=== PATIENT | male | born 1955 | race African-American/Black ===

== ENCOUNTER 2024-03-28 10:08 | Emergency (ER) | payer MEDICARE, SELFPAY ==
--- NOTE | ~2024-03-28 | XR_ITS ---
EXAMINATION: XR chest 1V portable DATE: 03/28/2024 10:31 INDICATION: Dizziness. TECHNIQUE: A single frontal view of the chest was obtained. COMPARISON: None. FINDINGS: There is mild atelectasis in left lower lung zone. No pleural effusion or pneumothorax. The heart size is normal. IMPRESSION: 1. Mild atelectasis in left lower lung zone. Reviewed, dictated and finalized at location A.
[2024-03-28 10:11] VITALS: BP 161/89; PULSE 68; RESP 18; TEMP 36.6; O2SAT 97
--- NOTE | 2024-03-28 11:01 | ED.URI ---
HPI - URI/Sore Throat General Chief Complaint: Upper Respiratory Infection Stated Complaint: covid+, not feeling well X1 week Time Seen by Provider: 03/28/24 10:16 History of Present Illness HPI Narrative: Patient was diagnosed with COVID a week ago, started on doxycycline, Paxlovid, steroids, has been having nausea and stomach upset he thinks mostly from the doxycycline. Related Data Allergies Allergy/AdvReac Type Severity Reaction Status Date / Time No Known Allergies Allergy Verified 03/28/24 10:09 Review of Systems Review of Systems: All systems reviewed & are unremarkable except as noted in HPI and below Exam Narrative: EXAMINATION OF ORGAN SYSTEMS/BODY AREAS: Constitutional: Vital signs per nursing GENERAL:[No acute distress, non-toxic appearing.] HEAD: Normal with no signs of head trauma. EYES: EOMI, conjunctiva normal ENT: Hearing grossly intact LUNGS: Nonlabored breathing, clear to auscultation bilaterally HEART: [Regular rate and rhythm] ABD: [Soft], [nontender to palpation] EXT: Normal range of motion SKIN: [No rashes or lesions.] NEURO: [Alert and oriented x 3. No gross focal sensory or strength deficits.] PSYCH: Normal affect Course Vital Signs Vital signs: Vital Signs Temperature 97.9 F 03/28/24 10:11 Pulse Rate 68 03/28/24 10:11 Respiratory Rate 18 03/28/24 10:11 Blood Pressure 161/89 H 03/28/24 10:11 Pulse Oximetry 97 03/28/24 10:11 Oxygen Delivery Room Air 03/28/24 10:11 Temperature 97.9 F 03/28/24 10:11 Pulse Rate 68 03/28/24 10:11 Respiratory Rate 18 03/28/24 10:11 Blood Pressure 161/89 H 03/28/24 10:11 Pulse Oximetry 97 03/28/24 10:11 Oxygen Delivery Room Air 03/28/24 10:11 MDM - URI/Sore Throat MDM Narrative Medical decision making narrative: 69-year-old male presents here with stomach upset after recent COVID diagnosis he thinks worsened by doxycycline he was prescribed. Overall well-appearing here, abdomen soft nontender, I will give him medications here and check basic labs and chest x-ray and re-evaluate. Labs do show elevated LFTs I do not a baseline, I suspect this may be from potential recent viral infection, I did get patient follow-up instructions to GI for any further issues to track his LFTs, and come back here if his symptoms persist or worsen. Patient and agreeable to plan. Scripts for symptomatic management provided. Lab Data 03/28/24 10:59 03/28/24 10:59 Labs: Lab Results 03/28/24 Range/Units 10:59 WBC 6.3 (4.5-10.0) K/mm3 RBC 5.36 (4.6-6.20) M/mm3 Hgb 17.3 (14.0-18.0) g/dL Hct 50.4 (42.0-52.0) % MCV 94.0 (80-100) fl MCH 32.3 (26-34) pg MCHC 34.3 (32-36) g/dl RDW 12.9 (11.5-14.5) % Plt Count 245 (150-375) k/mm3 MPV 9.6 (7.4-10.4) fl Immature Gran % (Auto) 1.4 H (0-0.5) % Neut % (Auto) 51.2 (45.5-73.1) % Lymph % (Auto) 31.0 (18.3-44.2) % Wirt % (Auto) 13.8 H (2.6-8.5) % Eos % (Auto) 2.1 (0-4.4) % Baso % (Auto) 0.5 (0.2-1.2) % Lymph # (Auto) 1.95 (0.9-3.2) K/mm3 Wirt # (Auto) 0.9 H (0.1-0.6) K/mm3 Eos # (Auto) 0.1 (0-0.3) K/mm3 Baso # (Auto) 0.0 (0.0-0.1) K/mm3 Abs Immat Gran (auto) 0.09 H (0.00-0.031) K/mm3 Absolute Neuts (auto) 3.2 (1.3-6.7) K/mm3 Absolute Nucleated RBC 0.000 (0.0-0.012) K/mm3 Nucleated RBC % 0.0 (0.0-0.2) % Sodium 135 L (137-145) mmol/L Potassium 3.9 (3.4-5.0) mmol/L Chloride 97 L (98-107) mmol/L Carbon Dioxide 34 H (22-30) mmol/L Anion Gap 4 (4-12) mmol/L BUN 12 (9-20) mg/dL Creatinine 1.00 (0.7-1.3) mg/dL Estim Creat Clear Calc 68 ml/min Estimated GFR > 60 (59 - ) Glucose 108 (65-110) mg/dL Calcium 9.0 (8.4-10.2) mg/dL Total Bilirubin 0.9 (0.2-1.3) mg/dL AST 68 H (17-59) U/L ALT 149 H (6-50) U/L Alkaline Phosphatase 122 (38-126) U/L Total Protein 8.0 (6.3-8.2) g/dL Albumin 3.7 (3.5-5.1) g/dL Discharge Plan Discharge
[2024-03-28 11:06] LABS: Basophils Percent Auto 0.5 % (0.2-1.2); Eosinophils Absolute Auto 0.1 K/mm3 (0-0.3); Eosinophils Percent Auto 2.1 % (0-4.4); Hematocrit 50.4 % (42.0-52.0); Hemoglobin 17.3 g/dL (14.0-18.0); Immature Granulocyte Absolute 0.09 K/mm3 (0.00-0.031); Immature Granulocyte Percent A 1.4 % (0-0.5); Lymphocytes Absolute Auto 1.95 K/mm3 (0.9-3.2); Mean Corpuscular HGB Conc 34.3 g/dl (32-36); Mean Corpuscular Hemoglobin 32.3 pg (26-34); Mean Platelet Volume 9.6 fl (7.4-10.4); Monocytes Absolute Auto 0.9 K/mm3 (0.1-0.6); Monocytes Percent Auto 13.8 % (2.6-8.5); Neutrophils Absolute Auto 3.2 K/mm3 (1.3-6.7); Neutrophils Percent Auto 51.2 % (45.5-73.1); Platelet Count Result 245 k/mm3 (150-375); Red Blood Count 5.36 M/mm3 (4.6-6.20); Red Cell Distribution Width 12.9 % (11.5-14.5); White Blood Count 6.3 K/mm3 (4.5-10.0)
[2024-03-28 11:22] LABS: Alanine Aminotransferase 149 U/L (6-50); Albumin Level 3.7 g/dL (3.5-5.1); Alkaline Phosphatase 122 U/L (38-126); Anion Gap 4 mmol/L (4-12); Aspartate Amino Transferase 68 U/L (17-59); Bilirubin,Total 0.9 mg/dL (0.2-1.3); Blood Urea Nitrogen 12 mg/dL (9-20); Carbon Dioxide 34 mmol/L (22-30); Chloride 97 mmol/L (98-107); Estimated CRCL calculation 68 ml/min; Estimated Glomerular Filt Rate > 60; Glucose 108 mg/dL (65-110); Potassium 3.9 mmol/L (3.4-5.0); Sodium 135 mmol/L (137-145)
[2024-03-28] MEDS: ONDANSETRON HCL ODT 4 MG TABLET PO (11:36)
[2024-03-28] MEDS: MAG HYDROX/AL HYDROX/SIMETH 30 ML UDC PO (11:37)
[2024-03-28] MEDS: FAMOTIDINE 20 MG TABLET PO (11:46)
== END 2024-03-28 11:57 | disposition home or self-care (01) ==
PROVIDERS: Emergency Provider Emergency Medicine
DX: R79.89 Other specified abnormal findings of blood chemistry (principal)
CPT/HCPCS: 36415; 71045; 80053; 85025; 99283; A9270

== ENCOUNTER 2024-03-31 13:22 | Emergency (ER) | payer MEDICARE, SELFPAY ==
--- NOTE | ~2024-03-31 | CT_ITS ---
CTA chest PE protocol Ordering provider: Sergio Ibanez MD History: 69 years Male with . chest pain, covid + . Comparison: None. Technique: CT angiogram chest was performed following timed intravenous injection of contrast. Thin s lice axial images and reformatted coronal images were obtained. Three dimensional reformatted images of the chest were also obtained using a [employer] workstation. . Automated exposure control and iterati ve reconstruction technique were employed. The dose-length product was 488.79 mGy-cm. 100 mL Omnipaqu e 350 was given IV. Findings: PULMONARY ARTERIES: No pulmonary embolus. VISUALIZED THORACIC INLET: Normal. MEDIASTINUM: Aorta/coronary arteries: The thoracic aorta is normal. Heart/other: The heart is not enlarged. Lymph nodes: No mediastinal or hilar adenopathy. LUNGS: minimal groundglass appearance is seen in the right upper lobe posteriorly. Follow-up advised. Simila r changes in the lower lobes is not excluded. No pulmonary nodules or masses. No effusions. No pneumo thorax. Small bullae are seen in the right lower lobe. VISUALIZED UPPER ABDOMEN: the visualized upper abdomen is normal. MUSCULOSKELETAL: Soft tissues: The superficial soft tissues are normal. Bones: Age appropriate degenerative changes of the spine. IMPRESSION: 1. No pulmonary embolism. 2. Minimal groundglass appearance seen in the right upper lobe posteriorly and both lower lobes post eriorly. Early pneumonitis is not excluded. Follow-up advised. Reviewed, dictated and finalized at location A. IMPRESSION: 1. No pulmonary embolism. 2. Minimal groundglass appearance seen in the right upper lobe posteriorly and both lower lobes posteriorly. Early pneumonitis is not excluded. Follow-up adv ised.
[2024-03-31 13:28] VITALS: BP 138/76; PULSE 63; RESP 16; TEMP 36.5; O2SAT 99
[2024-03-31 13:39] VITALS: O2SAT 98
--- NOTE | 2024-03-31 13:49 | ECG_ITS ---
Test Date: 2024-03-31 14:01:17 Measurements Intervals Britt Rate: 57 P: 58 SD: 191 QRS: 48 QRSD: 88 T: 68 QT: 404 QTc: 395 Interpretive Statements SINUS BRADYCARDIA POSSIBLE LEFT ATRIAL ENLARGEMENT [-0.1mV P WAVE IN V1/V2] POSSIBLE LEFT VENTRICULAR HYPERTROPHY [VOLTAGE CRITERIA PLUS LAE OR QRS WIDENING] NONSPECIFIC T-WAVE ABNORMALITY No previous ECG available for comparison Electronically Signed On 03-31-2024 14:37:36 CDT by Jens Wu M.D.
--- NOTE | 2024-03-31 13:50 | ED.GENADULT ---
HPI - General Adult General Chief complaint: Upper Respiratory Infection Stated complaint: COVID+ OCT 3 STILL FEELS BAD Time Seen by Provider: 03/31/24 13:36 History of Present Illness HPI narrative: 69-year-old male presenting to the emergency department for evaluation for persistent chest pain with headache. Patient states he was diagnosed with COVID on 03/20. At that time patient was started on prednisone and doxy. Patient presented to the emergency department last week complaining of upper abdominal pain. Patient did stop the doxy. Patient states that he is still having chest pain. Patient denies any radiation of chest pain. Patient denies any associated breath. Patient states the chest pain has been constant. Patient states nothing makes the pain better or worse. Related Data Allergies Allergy/AdvReac Type Severity Reaction Status Date / Time No Known Allergies Allergy Verified 03/31/24 13:41 Review of Systems Review of Systems: All systems reviewed & are unremarkable except as noted in HPI and below Exam Narrative: APPEARANCE: Well appearing, no pain, no distress, well-nourished. HEAD: normocephalic, atraumatic. EYES: PERRLA/EOMI, conjunctivae clear. NOSE: Normal no drainage NECK: Supple. No adenopathy, no masses. RESPIRATORY: Airway patent, respirations nonlabored. Clear to auscultation bilaterally, no rales, rhonchi, wheezing. CARDIOVASCULAR: Regular rate and rhythm without murmurs rubs or gallops. ABDOMINAL: Soft, nontender, nondistended, normal bowel sounds MUSCULOSKELETAL: Moves all extremities. Strength/ROM intact, No edema, No calf tenderness. NEURO: Alert. Cranial nerves II through XII intact. Grossly intact SKIN: Warm, dry. Normal Color Course Vital Signs Vital signs: Vital Signs Temperature 97.7 F 03/31/24 13:28 Pulse Rate 63 03/31/24 13:28 Respiratory Rate 16 03/31/24 13:28 Blood Pressure 138/76 03/31/24 13:28 Pulse Oximetry 99 03/31/24 13:28 Oxygen Delivery Room Air 03/31/24 13:28 Temperature 97.7 F 03/31/24 13:28 Pulse Rate 58 L 03/31/24 17:30 Respiratory Rate 19 03/31/24 17:30 Blood Pressure 124/79 03/31/24 17:30 Pulse Oximetry 98 03/31/24 17:30 Oxygen Delivery Room Air 03/31/24 13:39 Medical Decision Making MDM Narrative Medical decision making narrative: 69-year-old male presents emergency department for evaluation for chest pain. Patient is afebrile with no leukocytosis and a stable hemoglobin of 17.8. Patient did have an elevated D-dimer of 0.55 but his CTA showed no evidence of pulmonary embolism. Patient did have mildly elevated liver enzymes that are similar to previous. No elevation T bili. CTA chest was to evaluate pulmonary embolism but did show evidence of possible pneumonitis. Patient does feel his pain is improved distal complaining of some minor headache. Suspect pleurisy versus pneumonitis is underlying etiology. Low concern for ACS. Patient was also advised to start taking omeprazole for possible gastritis as a underlying etiology. Patient was encouraged to take Tylenol and naproxen for pain control. All questions concerns were addressed patient was comfortable the plan for discharge and close follow-up. Differential Diagnosis Differential Diagnosis: Gastritis, esophagitis, pulmonary embolism, ACS, pneumonitis, colitis, diverticulitis, pneumonia, pneumonitis Vital Signs Vital Signs: Vital Signs Temperature 97.7 F 03/31/24 13:28 Pulse Rate 63 03/31/24 13:28 Respiratory Rate 16 03/31/24 13:28 Blood Pressure 138/76 03/31/24 13:28 Pulse Oximetry 99 03/31/24 13:28 Oxygen Delivery Room Air 03/31/24 13:28 Temperature 97.7 F 03/31/24 13:28 Pulse Rate 58 L 03/31/24 17:30 Respiratory Rate 19 03/31/24 17:30 Blood Pressure 124/79 03/31/24 17:30 Pulse Oximetry 98 03/31/24 17:30 Oxygen Delivery Room Air 03/31/24 13:39 Lab Data Lab results reviewed: Yes I reviewed the patient's
[2024-03-31] MEDS: KETOROLAC 15 MG/ML VIAL (*BKC) IV PUSH (14:04)
[2024-03-31] MEDS: PANTOPRAZOLE SODIUM IV 40 MG VIAL IV PUSH (14:05)
[2024-03-31] MEDS: FAMOTIDINE 20 MG/2 ML VIAL IV PUSH (14:05)
[2024-03-31 14:20] LABS: Basophils Percent Auto 0.6 % (0.2-1.2); Eosinophils Absolute Auto 0.2 K/mm3 (0-0.3); Eosinophils Percent Auto 2.2 % (0-4.4); Hematocrit 52.1 % (42.0-52.0); Hemoglobin 17.8 g/dL (14.0-18.0); Immature Granulocyte Absolute 0.04 K/mm3 (0.00-0.031); Immature Granulocyte Percent A 0.6 % (0-0.5); Lymphocytes Absolute Auto 2.05 K/mm3 (0.9-3.2); Lymphocytes Percent Auto 30.6 % (18.3-44.2); Mean Corpuscular HGB Conc 34.2 g/dl (32-36); Mean Corpuscular Hemoglobin 32.5 pg (26-34); Mean Corpuscular Volume 95.1 fl (80-100); Mean Platelet Volume 9.7 fl (7.4-10.4); Monocytes Absolute Auto 1.1 K/mm3 (0.1-0.6); Monocytes Percent Auto 16.7 % (2.6-8.5); Neutrophils Absolute Auto 3.3 K/mm3 (1.3-6.7); Neutrophils Percent Auto 49.3 % (45.5-73.1); Platelet Count Result 242 k/mm3 (150-375); Red Blood Count 5.48 M/mm3 (4.6-6.20); Red Cell Distribution Width 12.7 % (11.5-14.5); White Blood Count 6.7 K/mm3 (4.5-10.0)
[2024-03-31 14:30] LABS: Alanine Aminotransferase 122 U/L (6-50); Albumin Level 4.2 g/dL (3.5-5.1); Alkaline Phosphatase 134 U/L (38-126); Anion Gap 6 mmol/L (4-12); Aspartate Amino Transferase 49 U/L (17-59); Blood Urea Nitrogen 11 mg/dL (9-20); Calcium 9.5 mg/dL (8.4-10.2); Carbon Dioxide 34 mmol/L (22-30); Chloride 95 mmol/L (98-107); Estimated CRCL calculation 84 ml/min; Estimated Glomerular Filt Rate > 60; Glucose 98 mg/dL (65-110); Potassium 4.8 mmol/L (3.4-5.0); Sodium 135 mmol/L (137-145)
[2024-03-31 14:37] LABS: Partial Thromboplastin Time 25.8 Seconds (22.3-36.8); Prothrombin Time 13.2 Seconds (11.1-14.7)
[2024-03-31 14:44] LABS: Troponin I < 0.012 ng/mL (0.000-0.034)
[2024-03-31 14:59] LABS: D Dimer 0.55 ug/mL (<0.48)
[2024-03-31] MEDS: HYDROcodone/acetaminophen (*CRX) 5-325 MG TABLET 1 TAB PO (17:20)
[2024-03-31 17:30] VITALS: BP 124/79; PULSE 58; RESP 19; O2SAT 98
== END 2024-03-31 17:30 | disposition home or self-care (01) ==
PROVIDERS: Emergency Provider Emergency Medicine
DX: R07.89 Other chest pain (principal); R10.13 Epigastric pain; Z86.16 Personal history of COVID-19; R91.8 Other nonspecific abnormal finding of lung field
CPT/HCPCS: 36415; 71275; 80053; 84484; 85025; 85380; 85610; 85730; 93005; 96374; 96375; 99284; A9270; J1885; J2470; Q9967